=== PATIENT | female | born 1975 | race Caucasian/White ===

== ENCOUNTER 2016-07-03 11:13 | Emergency (ER) | payer MEDICAID ==
--- NOTE | 2016-07-03 11:27 | ER Document Report ---
ED Medical Screen (RME) - General Chief Complaint: Abdominal Pain Stated Complaint: ABDOMINAL PAIN/DIARRHEA Time Seen by Provider: 07/03/16 11:20 Mode of Arrival: Wheelchair Information source: Patient Notes: 41-year-old female presents with complaints of suprapubic cramping sensation associated with diarrhea. Patient notes she had one episode 3 weeks ago another episode one week ago. Patient denies any vomiting, feels something is protruding from her abdomen I have greeted and performed a rapid initial assessment of this patient. A comprehensive ED assessment and evaluation of the patient, analysis of test results and completion of the medical decision making process will be conducted by additional ED providers. PHYSICAL EXAMINATION: GENERAL: Well-appearing, well-nourished and in no acute distress. HEAD: Atraumatic, normocephalic. EYES: Pupils equal round extraocular movements intact, conjunctiva are normal. ENT: Nares patent NECK: Normal range of motion LUNGS: No respiratory distress Musculoskeletal: Normal range of motion NEUROLOGICAL: Normal speech, normal gait. PSYCH: Normal mood, normal affect. SKIN: Warm, Dry, normal turgor, no rashes or lesions noted. TRAVEL OUTSIDE OF THE [place] IN LAST 30 DAYS: No - Related Data Allergies/Adverse Reactions: carbamazepine [From Tegretol] Allergy (Verified 07/03/16 11:16) Past Medical History Pulmonary Medical History: Reports: Hx COPD Renal/ Medical History: Denies: Hx Peritoneal Dialysis Musculoskeltal Medical History: Reports Hx Fibromyalgia Psychiatric Medical History: Reports: Hx Depression, Hx Post Traumatic Stress Disorder Past Surgical History: Reports: Hx Oral Surgery, Hx Thyroid Surgery - Immunizations Hx Diphtheria, Pertussis, Tetanus Vaccination: Yes - 3-4 years ago (approx. 2007 ) Physical Exam - Vital signs Vitals: Temp Pulse Resp BP Pulse Ox 98.0 F 97 16 108/76 99 07/03/16 11:18 07/03/16 11:18 07/03/16 11:18 07/03/16 11:18 07/03/16 11:18 Course - Vital Signs Vital signs: Temp Pulse Resp BP Pulse Ox 98.0 F 97 16 108/76 99 07/03/16 11:18 07/03/16 11:18 07/03/16 11:18 07/03/16 11:18 07/03/16 11:18
--- NOTE | 2016-07-03 11:47 | ER Document Report ---
ED GI/ - General Chief Complaint: Abdominal Pain Stated Complaint: ABDOMINAL PAIN/DIARRHEA Time Seen by Provider: 07/03/16 11:20 Mode of Arrival: Wheelchair Notes: The patient is a 41-year-old female, , past medical history fibromyalgia and PTSD, presents with pain and swelling over her lower abdomen for the past 2 days. In addition she is having lower back pain. The pain is worse when she has loose stools today and when she moves. She denies nausea, vomiting, prior abdominal surgeries, vaginal discharge, dysuria, flank pain, fevers, headache, chest pain or shortness of breath. TRAVEL OUTSIDE OF THE [place] IN LAST 30 DAYS: No - Related Data Allergies/Adverse Reactions: carbamazepine [From Tegretol] Allergy (Verified 07/03/16 11:16) Past Medical History - General Information source: Patient - Social History Smoking Status: Current Every Day Smoker Chew tobacco use (# tins/day): No Frequency of alcohol use: Occasional Drug Abuse: None Family History: Reviewed & Not Pertinent Patient has suicidal ideation: No Patient has homicidal ideation: No Pulmonary Medical History: Reports: Hx COPD Renal/ Medical History: Denies: Hx Peritoneal Dialysis Musculoskeltal Medical History: Reports Hx Fibromyalgia Psychiatric Medical History: Reports: Hx Depression, Hx Post Traumatic Stress Disorder Past Surgical History: Reports: Hx Oral Surgery, Hx Thyroid Surgery - Immunizations Hx Diphtheria, Pertussis, Tetanus Vaccination: Yes - 3-4 years ago (approx. 2007 ) Hx Pneumococcal Vaccination: 02/21/09 Review of Systems - Review of Systems Notes: REVIEW OF SYSTEMS: CONSTITUTIONAL: -fevers, -chills EENT: -eye pain, -difficulty swallowing, -nasal congestion CARDIOVASCULAR:-chest pain, -syncope. RESPIRATORY: -cough, -SOB GASTROINTESTINAL: +abdominal pain, -nausea, -vomiting, +diarrhea GENITOURINARY: -dysuria, -hematuria MUSCULOSKELETAL: -back pain, -neck pain SKIN: -rash or skin lesions. HEMATOLOGIC: -easy bruising or bleeding. LYMPHATIC: -swollen, enlarged glands. NEUROLOGICAL: -altered mental status or loss of consciousness, -headache, - neurologic symptoms PSYCHIATRIC: -anxiety, -depression. ALL OTHER SYSTEMS REVIEWED AND NEGATIVE. Physical Exam - Vital signs Vitals: Temp Pulse Resp BP Pulse Ox 98.0 F 97 16 108/76 99 07/03/16 11:18 07/03/16 11:18 07/03/16 11:18 07/03/16 11:18 07/03/16 11:18 - Notes Notes: PHYSICAL EXAMINATION: GENERAL: Well-appearing, well-nourished and in no acute distress. HEAD: Atraumatic, normocephalic. EYES: Pupils equal round and reactive to light, extraocular movements intact, sclera anicteric, conjunctiva are normal. ENT: nares patent, oropharynx clear without exudates. Moist mucous membranes. NECK: Normal range of motion, supple without lymphadenopathy LUNGS: Breath sounds clear to auscultation bilaterally and equal. No wheezes rales or rhonchi. HEART: Regular rate and rhythm without murmurs ABDOMEN: Moderate abdominal tenderness over RLQ, LLQ and suprapubic regions, mass in lower abdomen EXTREMITIES: Normal range of motion, no pitting or edema. No cyanosis. NEUROLOGICAL: Cranial nerves grossly intact. Normal speech, normal gait. Normal sensory, motor, and reflex exams. PSYCH: Normal mood, normal affect. SKIN: Warm, Dry, normal turgor, no rashes or lesions noted. Course - Re-evaluation Re-evalutation: Patient with large pelvic mass on physical exam. CT shows 11 cm right ovarian cystic mass with possible compression of the ureter. Her kidney function is normal and she is urinating. Pain is under control after morphine and Toradol. Spoke to Dr. Benavides (Signal Inspector) at 15:45 and she recommends following up in her office on Tuesday (in 2 days) to schedule surgery for removal of the mass. Since she can urinate and her pain is under control, she does not require emergent surgery. Spoke to patient about this plan and she understands. Will send home with Percocet and was follow up at gynecology. Given strict return precautions and she understands. - Vital Signs Vital signs: Temp Pulse Resp BP Pulse Ox 98.0 F 97 16 108/76 99 07/03/16 11:18 07/03/16 11:18 07/03/16 11:18 07/03/16 11:18 07/03/16 11:18 - Laboratory Result Diagrams: 07/03/16 11:35 07/03/16 11:35 Laboratory results interpreted by me: 07/03/16 07/03/16 11:35 11:52 AST 12 L Urine Urobilinogen 4.0 H - Diagnostic Test Radiology reviewed: Image reviewed, Reports reviewed Radiology results interpreted by me: CT A/P: Large cystic pelvic mass as noted above presumably ovarian in etiology. 3 small cysts are identified in the left pelvis presumably related to the left ovary. There is some fullness of the pelvocaliceal systems of each kidney presumably related to extrinsic compression of the distal ureters by the large pelvic mass. Clinical correlation is recommended. Other findings as noted above. Discharge - Discharge Clinical Impression: Ovarian mass, right Condition: Stable Disposition: HOME, SELF-CARE Additional Instructions: You must follow-up with the subassemblies wirer on Tuesday. Take Motrin for pain and Percocet for severe pain. Do not drive when taking Percocet. Ovarian Cyst Your examination shows the presence of an ovarian cyst. This is a ball of fluid attached to the ovary. Ovarian cysts in women of child-bearing age are usually innocent. However, the cyst may cause pain when it grows or bursts. An innocent ovarian cyst will usually go away by itself. When the cyst becomes painful, you should rest. Pain medication may be required. Some women find a hot water bottle soothing. The pain usually resolves within one or two days. After menopause, an ovarian cyst may mean a tumor, and requires more aggressive evaluation -- usually surgery is recommended to remove or biopsy the cyst. A very large cyst requires evaluation at any age. Most cysts (even the innocent ones) require follow-up examination. Call the doctor or return at any time if the pain increases significantly, if you become faint, or if you experience vaginal bleeding. Prescriptions: Oxycodone HCl/Acetaminophen [Percocet 5-325 mg Tablet] 1 - 2 tab PO Q4H PRN #10 tablet PRN Reason: Referrals: NICHOLAS GONZALEZ MD [Primary Care Provider] - Follow up as needed MARGO BENAVIDES MD [ACTIVE STAFF] - Follow up as needed
[2016-07-03 11:50] LABS: ABSOLUTE BASOPHILS # (AUTO) 0.1 10^3/uL (0.0-0.2); ABSOLUTE LYMPHOCYTES (AUTO) 1.9 10^3/uL (0.5-4.7); ABSOLUTE MONOCYTES (AUTO) 0.8 10^3/uL (0.1-1.4); ABSOLUTE NEUT (AUTO) 7.4 10^3/uL (1.7-8.2); BASOPHILS % (AUTO) 1.2 % (0-2); EOSINOPHILS % (AUTO) 0.4 % (0-6); HEMATOCRIT 43.2 % (36.0-47.0); HEMOGLOBIN 14.6 g/dL (12.0-15.5); HGB HCT DIFFERENCE 0.6; LYMPHOCYTES % (AUTO) 18.2 % (13-45); MEAN CORPUSCULAR HEMOGLOBIN 31.3 pg (27.0-33.4); MEAN CORPUSCULAR HGB CONC 33.8 g/dL (32.0-36.0); MEAN CORPUSCULAR VOLUME 93 fl (80-97); MONOCYTES % (AUTO) 8.1 % (3-13); RED BLOOD COUNT 4.66 10^6/uL (3.72-5.28); RED CELL DISTRIBUTION WIDTH 12.9 % (11.5-14.0); SEGMENTED NEUTROPHILS % (AUTO) 72.1 % (42-78); WHITE BLOOD COUNT 10.2 10^3/uL (4.0-10.5)
[2016-07-03] MEDS ORDERED: MORPHINE SULFATE 10 MG/ML INJ IV ONE (11:58)
[2016-07-03] MEDS ORDERED: KETOROLAC TROMETHAMINE INJ/PF 30 MG/1 ML SDV IV ONE (11:58)
[2016-07-03 12:07] LABS: ALANINE AMINOTRANSFERASE 14 U/L (9-52); ALBUMIN 3.9 g/dL (3.5-5.0); ALKALINE PHOSPHATASE 81 U/L (38-126); ANION GAP 12 (5-19); ASPARTATE AMINO TRANSFERASE 12 U/L (14-36); BILIRUBIN,DIRECT 0.3 mg/dL (0.0-0.4); BILIRUBIN,TOTAL 0.5 mg/dL (0.2-1.3); BLOOD UREA NITROGEN 9 mg/dL (7-20); CALCIUM 9.6 mg/dL (8.4-10.2); CARBON DIOXIDE 25 mmol/L (22-30); CHLORIDE 102 mmol/L (98-107); CREATININE RESULT 0.69 mg/dL (0.52-1.25); GLUCOSE 76 mg/dL (75-110); LIPASE 79.8 U/L (23-300); POTASSIUM 4.5 mmol/L (3.6-5.0); SODIUM 139.2 mmol/L (137-145); TOTAL PROTEIN 6.9 g/dL (6.3-8.2)
[2016-07-03 12:27] LABS: APPEARANCE,URINE SLIGHTLY-CLOUDY; BILIRUBIN,URINE NEGATIVE (NEGATIVE); GLUCOSE, URINE NEGATIVE (NEGATIVE); KETONES,URINE NEGATIVE (NEGATIVE); LEUKOCYTE ESTERASE,URINE NEGATIVE (NEGATIVE); NITRITE,URINE NEGATIVE (NEGATIVE); PROTEIN,URINE NEGATIVE (NEGATIVE); URINE SPECIFIC GRAVITY 1.025
[2016-07-03 17:13] VITALS: BP 110/78
== END 2016-07-03 17:13 | disposition home or self-care (01) ==
LOC: ER 11:13
DX: R19.00 Intra-abdominal and pelvic swelling, mass and lump, unspecified site (principal); R10.9 Unspecified abdominal pain; R19.7 Diarrhea, unspecified; F17.200 Nicotine dependence, unspecified, uncomplicated
CPT/HCPCS: 99284; 96374; 96375; 36415; 83690; 85025; 81025; 80053; 81001; 74177; J1885; J2270

== ENCOUNTER 2016-07-07 16:13 | Inpatient (IN) | payer MEDICAID ==
[2016-07-06 13:02] LABS: HEMATOCRIT 39.9 % (36.0-47.0); HEMOGLOBIN 13.5 g/dL (12.0-15.5); HGB HCT DIFFERENCE 0.6; MEAN CORPUSCULAR HEMOGLOBIN 31.5 pg (27.0-33.4); MEAN CORPUSCULAR HGB CONC 33.8 g/dL (32.0-36.0); MEAN CORPUSCULAR VOLUME 93 fl (80-97); RED BLOOD COUNT 4.28 10^6/uL (3.72-5.28); WHITE BLOOD COUNT 9.6 10^3/uL (4.0-10.5)
[2016-07-06 13:10] LABS: APPEARANCE,URINE SLIGHTLY-CLOUDY; BILIRUBIN,URINE NEGATIVE (NEGATIVE); GLUCOSE, URINE NEGATIVE (NEGATIVE); KETONES,URINE TRACE mg/dL (NEGATIVE); LEUKOCYTE ESTERASE,URINE NEGATIVE (NEGATIVE); NITRITE,URINE NEGATIVE (NEGATIVE); PROTEIN,URINE NEGATIVE (NEGATIVE); URINE SPECIFIC GRAVITY 1.023
[2016-07-06 13:27] LABS: ALANINE AMINOTRANSFERASE 20 U/L (9-52); ALBUMIN 3.3 g/dL (3.5-5.0); ALKALINE PHOSPHATASE 74 U/L (38-126); ANION GAP 10 (5-19); ASPARTATE AMINO TRANSFERASE 12 U/L (14-36); BILIRUBIN,DIRECT 0.4 mg/dL (0.0-0.4); BILIRUBIN,TOTAL 0.6 mg/dL (0.2-1.3); BLOOD UREA NITROGEN 8 mg/dL (7-20); CALCIUM 9.1 mg/dL (8.4-10.2); CARBON DIOXIDE 26 mmol/L (22-30); CHLORIDE 100 mmol/L (98-107); CREATININE RESULT 0.63 mg/dL (0.52-1.25); GLUCOSE 85 mg/dL (75-110); POTASSIUM 4.4 mmol/L (3.6-5.0); SODIUM 135.8 mmol/L (137-145); TOTAL PROTEIN 6.6 g/dL (6.3-8.2)
[2016-07-06 13:33] LABS: URINE BARBITURATES SCREEN NEGATIVE; URINE METHADONE SCREEN NEGATIVE; URINE PHENCYCLIDINE SCREEN NEGATIVE
[2016-07-06 15:10] LABS: URINE OPIATES LOW UNCONFIRMED POSITIVE
[~2016-07-07 16:13] MED LIST: BUPIVACAINE HCL 0.25 % INJ/PF (2.5 MG/1 ML) 30 ML VIAL ONE; CEFAZOLIN 2 GM/D5W RTU 2 GM/50 ML RTUPB IV PRN; DEXAMETHASONE SOD PHOSPHATE INJ 4 MG/1 ML VIAL ONE; FENTANYL CITRATE INJ/PF 100 MCG/2 ML AMPUL ONE; GLYCOPYRROLATE INJ 0.4 MG/2 ML VIAL ONE; HYDROMORPHONE HCL INJ/PF 2 MG/ML AMPULE ONE; IBUPROFEN INJ 800 MG/8 ML VIAL IV ONE; LACTATED RINGERS 1000 ML IV PRN; LIDOCAINE 0.5% INJ-PF (5 MG/ML) 50 ML SDV SUBCUT PRN; METHYLENE BLUE/PF INJ 100 MG/10 ML SDV ONE; MIDAZOLAM 2 MG/2 ML INJ ONE; NEOSTIGMINE METHYLSULFATE 10 MG/10 ML VIAL ONE; ONDANSETRON HCL INJ/PF 4 MG/2 ML SDV ONE; OXYCODONE-ACETAMINOPHEN 5-325 MG TABLET ONE; PROPOFOL INJ 200 MG/20 ML VIAL IV ONE; ROCURONIUM BROMIDE INJ 50 MG/5 ML VIAL IV ONE; SUCCINYLCHOLINE CHLORIDE INJ 200 MG/10 ML VIAL ONE
[2016-07-07] MEDS ORDERED: GENTAMICIN SULFATE INJ 80 MG/2 ML VIAL ONE (17:09)
[2016-07-07] MEDS ORDERED: FENTANYL CITRATE INJ/PF 100 MCG/2 ML AMPUL ONE (17:13)
[2016-07-07] MEDS ORDERED: HYDROMORPHONE HCL INJ/PF 2 MG/ML AMPULE IV PRN ×2 (22:00)
[2016-07-07] MEDS ORDERED: OXYCODONE-ACETAMINOPHEN 5-325 MG TABLET PO PRN (22:00)
[2016-07-07] MEDS ORDERED: ONDANSETRON 4 MG TAB.RAPDIS PO PRN (22:00)
[2016-07-07] MEDS: CLINDAMYCIN 900 MG/D5W RTU 50 ML IV SCH (22:13)
[2016-07-07] MEDS: OXYCODONE-ACETAMINOPHEN 5-325 MG TABLET PO PRN (22:16)
[2016-07-08] MEDS: GABAPENTIN 300 MG CAPSULE PO SCH ×4 (00:01→21:51)
[2016-07-08] MEDS: IBUPROFEN 800 MG TABLET PO SCH ×4 (00:01→21:38)
[2016-07-08] MEDS ORDERED: GENTAMICIN SULFATE 80 MG in DEXTROSE 5%-WATER 100 ML IV ONE (01:00)
[2016-07-08] MEDS: OXYCODONE-ACETAMINOPHEN 5-325 MG TABLET PO PRN ×5 (04:20→23:22)
[2016-07-08] MEDS: CLINDAMYCIN 900 MG/D5W RTU 50 ML IV SCH (06:36)
[2016-07-08 07:15] LABS: HEMATOCRIT 31.9 % (36.0-47.0); HGB HCT DIFFERENCE 0.5; MEAN CORPUSCULAR HEMOGLOBIN 30.9 pg (27.0-33.4); MEAN CORPUSCULAR HGB CONC 33.9 g/dL (32.0-36.0); MEAN CORPUSCULAR VOLUME 91 fl (80-97); WHITE BLOOD COUNT 18.3 10^3/uL (4.0-10.5)
--- NOTE | 2016-07-08 07:21 | OPERATIVE REPORT E ---
Operative Report NAME: LULU MERRILL : 1975 AGE: 41Y DATE OF SURGERY: 07/07/2016 ROOM: 217 INTRAOPERATIVE CONSULT PREOPERATIVE DIAGNOSIS: ADHESIONS OF THE RECTOSIGMOID JUNCTION TO THE UTERUS. POSTPROCEDURE DIAGNOSIS: ADHESIONS OF THE RECTOSIGMOID JUNCTION TO THE UTERUS. OPERATION: 1. Lysis of adhesions of the rectosigmoid junction to the uterus. 2. Rigid proctoscopy with insufflation of air. SURGEON: SUKHI EGAN M.D. HISTORY: Patient is a 41-year old female who is currently being operated on by gynecology. They were doing a TH-BSO when dense adhesions were encountered in the rectosigmoid region to the posterior portion of the uterus. FINDINGS OF THE SURGERY: Patient had dense adhesions of the rectosigmoid junction to the posterior uterus and cervix. These were taken down. Once the hysterectomy had been completed, rigid proctoscopy was then performed with air insufflation. There is no leak of air from the rectum or rectosigmoid region. PROCEDURE: Patient's abdomen was already open and the uterus was partially removed. There were dense adhesions in the rectosigmoid region to the anterior portion of the uterus. These dense adhesions were then taken down using electrocautery, carefully staying as far away from the bowel wall as possible. The peritoneal reflection was then incised anteriorly and laterally. Denonvillier's fascia was then incised, further taking the rectum down off of the cervix and for a short portion of the vagina. Once this had been completed, I had stopped and then the rest of the hysterectomy was then performed. The pelvis was then thoroughly irrigated, inspecting the rectum and rectosigmoid junction. The bowel appeared to be intact without any damage. There is a small flap of peritoneum taken down off of the uterus that was attached to the rectosigmoid junction. This is brought down over the top of where the rectosigmoid junction and rectum had been taken down. This flap was secured to that area using interrupted #3-0 Vicryl suture. A bowel clamp was then placed across the sigmoid colon. The rigid proctoscope was then inserted through the anus and into the rectum to approximately 15 cm. Air was then insufflated and no leak was noted from the proximal rectum or rectosigmoid junction area. The air was let out of the rectum and the bowel clamp removed. At this point, the surgery was turned over to the varnish supervisor. ESTIMATED BLOOD LOSS: Less than 5 mL. COMPLICATIONS: None. DRAINS AND PACKS FOR MY PART OF THE PROCEDURE: None. DICTATING PHYSICIAN: SUKHI EGAN M.D. [id number] PHY#: [id number] ID: [id number] JOB#: [id number] ACCT: [id number] cc:SUKHI EGAN M.D. > MTDD
[2016-07-08 07:49] LABS: HEMOGLOBIN 10.8 g/dL (12.0-15.5)
--- NOTE | 2016-07-08 08:54 | OPERATIVE REPORT E ---
Operative Report NAME: LULU MERRILL : 1975 AGE: 41Y DATE OF SURGERY: 07/07/2016 ROOM: 217 PREOPERATIVE DIAGNOSIS: Pelvic pain with 12 cm right ovarian mass. POSTOPERATIVE DIAGNOSES: 1. Large right ovarian cyst, probable dermoid. 2. Significant pelvic adhesion disease. 3. 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 OPERATION: Laparoscopy which was converted to exploratory laparotomy with a total abdominal hysterectomy, bilateral salpingo-oophorectomy, lysis of adhesions, cystoscopy. There was also a proctoscopy performed by Dr. Serrato. SURGEON: NEDA ORTIZ M.D. FRONT END ASSISTANT: Dr. Machado. INTRAOPERATIVE CONSULT: Dr. Serrato of General Surgery. ESTIMATED BLOOD LOSS: 350 mL. TISSUE REMOVED OR ALTERED: Specimen to Pathology: Uterus, bilateral tubes and ovaries. FINDINGS: On laparoscopic evaluation, there was a large right ovarian mass that had a fairly smooth surface and had a large amount of sebaceous material inside of it. This was adhered inferiorly to the pelvic sidewall and posterior aspect of the uterus. After adequately visualizing the left tube and ovary, it was also realized that there was significant adhesion there. There were adhesions of the rectum to the posterior aspect of the uterus. On cystoscopic evaluation, there was spill of urine from both ureters. However, in the trigone in the bladder there was a white plaque-like area that was likely squamous metaplasia. This will be further evaluated by Dr. Copeland of Urology, and he will get the pictures tomorrow as he was not station operator today. DESCRIPTION OF PROCEDURE: After discussing risks, benefits, and alternatives of the procedure and obtaining informed consent, the patient was taken to the operating room where general anesthesia was achieved. She was positioned in the dorsal lithotomy position and prepped and draped in the usual standard fashion. Bladder was drained with a Mariano catheter. A Seismo-Shelf uterine manipulator was placed. Attention was turned to the patient's abdomen. Each port site was premedicated and then incision was made in the superior aspect of the umbilicus. A 12 mm skin incision was made. The fascia was grasped and elevated with Karrie and then incised. The Origin 12 mm trocar was placed under direct visualization and the peritoneum insufflated. The laparoscope was placed and the right and left lower quadrant trocars were placed under direct visualization. The pelvis was initially surveyed. An attempt was made to mobilize the large ovarian cyst out of the pelvis; however, spill occurred during this process, and the spill of the fluid was suctioned. Utero-ovarian pedicles were coagulated and cut on the patient's right. The right infundibulo- pelvic vessels were initially also started to be coagulated and cut with the LigaSure device. However, further mobilization was difficult, and it was at that point realized that the cyst was adhered to the pelvic sidewall and could not be removed that way. Also decompression of the cyst contents at that point allowed the scope to be passed more thoroughly into the posterior cul-de-sac, and the dense adhesions posteriorly were noted. At this point, it was felt to be most prudent to proceed to open laparotomy. The laparoscopic equipment was removed. The umbilical port site was closed with #1-Vicryl at the fascial level. Skin incisions were closed with 3-0 Monocryl followed by Dermabond. Next, a Pfannenstiel skin incision was made and the abdomen was entered in layers. The bowel was packed away and the Ramseur retractor placed. Each round ligament was suture ligated with #0-Monocryl and tagged. The round ligament medial to this was coagulated with the LigaSure device, and a bladder flap was created. This was done using cautery and blunt dissection. A defect was created in the mesosalpinx on the patient's left and the utero-ovarian vessels undermined. The infundibulo-pelvic vessels were therefore skeletonized, coagulated and cut, and the left tube and ovary removed. Dr. Machado arrived during this process. Attempt was made at removing more of the right ovarian cyst. This was done using cautery and sharp dissection. This was eventually removed in its entirety, and that aided in visualization. Dr. Serrato was then called for, and he removed rectal adhesions from the posterior aspect of the patient's uterus which were mainly on the patient's uterosacral ligament and just superior to that. The uterine arteries were then skeletonized and coagulated and cut with the LigaSure. Fariba clamps were placed just inferior to the cervix and the specimen excised. The cuff was closed with #0-Monocryl in interrupted [id number]. The pelvis was irrigated. Dr. Serrato then closed the peritoneum overriding the rectum back to the place where it had been deserosalized on the left. He did this with 3-0 Vicryl. He then went below with a rigid proctoscope and insufflated air after placing a clamp across the sigmoid. This was done after placing irrigation fluid around the bowel. There were no air bubbles noted, and it was all hemostatic. He then left the room after we removed the bowel clamp. The pelvis was surveyed and hemostasis assured. The laparotomy sponges were removed. The rectus muscle and peritoneum were closed in an interrupted fashion with 2-0 Vicryl. The subfascial spaces were noted to be hemostatic. Fascia was closed with #1-Vicryl. Subcutaneous spaces were irrigated and closed with 3-0 plain gut. Skin was closed in a subcuticular fashion with 4-0 Monocryl. An OpSite dressing was applied. Methylin blue had been given IV and cystoscopy then performed. There was spill of urine from both ureteral orifices. The white plaque-like area in the trigone in the bladder was noted, but the urologist was not immediately therefore. The case was, however, discussed with him. Dr. Copeland agrees to see the patient and look at the pictures tomorrow. The Amriano catheter was replaced. The patient was extubated and taken to recovery in stable condition. All sponge, needle, lap, and instrument counts were correct x2. DICTATING PHYSICIAN: NEDA ORTIZ M.D. [id number] PHY#: [id number] ID: [id number] JOB#: [id number] ACCT: [id number] cc:NEDA ORTIZ M.D. > MTDD
[2016-07-08] MEDS: NICOTINE 21 MG/24 HR PATCH.TD24 TD SCH (10:13)
--- NOTE | 2016-07-08 13:42 | PDOC CONSULTATION ---
Consultation Consult Date: 07/08/16 Attending physician:: NEDA ORTIZ Consult reason:: abnormal cysto findings History of Present Illness Admission Date/PCP: 07/07/16 21:04 NICHOLAS GONZALEZ MD Patient complains of: abdominal discomfort s/p surgery History of Present Illness: LULU MERRILL is a 41 year old female with a pmh of PTSD, depression, fibromyalgia and ovarian cyst s/p RADHIKA/BSO and cysto 07/07/16. On cysto, per Dr. Matthews, an abnormal white plaque-like lesion was noted at the trigone. The patient reports a h/o rare UTIs. She denies any bothersome LUTS such as freq/urg /dysuria. Denies any h/o hematuria as well. She is a current smoker. Past Medical History Past Medical History: as above Cardiac Medical History: Reports: Coronary Artery Disease - high chol Denies: Myocardial Infarction, Hypertension Pulmonary Medical History: Denies: Asthma, Bronchitis, Chronic Obstructive Pulmonary Disease (COPD), Pneumonia Neurological Medical History: Denies: Seizures Musculoskeltal Medical History: Reports: Fibromyalgia Denies: Arthritis Psychiatric Medical History: Reports: Depression, Post Traumatic Stress Disorder Hematology: Denies: Anemia, Sickle Cell Disease Past Surgical History Past Surgical History: as above, left breast cyst excision, thyroglossal duct excision Past Surgical History: Denies: Amputation Social History Smoking Status: Current Every Day Smoker Past Social History Note: Pt is a current smoker, denies h/o etoh/drug abuse Family History Family History: Other - noncontributory Parental Family History Reviewed: Yes Children Family History Reviewed: Yes Sibling(s) Family History Reviewed.: Yes Medication/Allergy Home Medications: Oxycodone HCl/Acetaminophen [Percocet 5-325 mg Tablet] 1 - 2 tab PO Q4H PRN #10 tablet 07/03/16 Hydromorphone HCl [Dilaudid 2 mg Tablet] 2 mg PO PRN PRN 07/06/16 Allergies/Adverse Reactions: carbamazepine [From Tegretol] Allergy (Verified 07/06/16 10:44) Unknown reaction Review of Systems Review of Systems: denies f/c, n/v, cp/sob, complete 12 point ROS performed and otherwise unremarkable except as noted Physical Exam Vital Signs: Temp Pulse Resp BP Pulse Ox 97.8 F 68 18 101/62 99 05/18/17 11:00 07/08/16 11:00 07/08/16 11:00 07/08/16 11:00 07/08/16 11:00 Intake & Output 07/07/16 07/08/16 07/09/16 06:59 06:59 06:59 Intake Total 400 Output Total 600 150 Balance -600 250 Weight 46.72 kg General appearance: PRESENT: no acute distress, cooperative, well-developed, well-nourished Head exam: PRESENT: atraumatic, normocephalic Eye exam: PRESENT: EOMI Ear exam: PRESENT: normal external ear exam Mouth exam: PRESENT: moist, neck supple Respiratory exam: PRESENT: symmetrical, unlabored Cardiovascular exam: PRESENT: RRR, other - no JVD GI/Abdominal exam: PRESENT: soft, tenderness - appropriate. ABSENT: distended, organolmegaly, rebound Gentrourinary exam: PRESENT: indwelling catheter - draining clear green urine Extremities exam: PRESENT: full ROM. ABSENT: calf tenderness, clubbing Musculoskeletal exam: PRESENT: other - no CVAT Neurological exam: PRESENT: alert, awake, CN II-XII grossly intact Psychiatric exam: PRESENT: normal mood, other - normal mood and affect Skin exam: PRESENT: dry, warm Results Laboratory Results: 07/08/16 06:40 07/06/16 11:38 07/08/16 06:40 WBC 18.3 H RBC 3.50 L Hgb 10.8 L D Hct 31.9 L MCV 91 MCH 30.9 MCHC 33.9 RDW 13.0 Plt Count 275 Assessment & Plan - Diagnosis (1) Lesion of bladder Is this a current diagnosis for this admission?: Yes - Plan Summary Plan Summary: s/p RADHIKA/BSO/Cysto with abnormal findings on cysto. I have reviewed the photos taken during cysto which are on the chart. The lesion appears to be most c/w squamous metaplasia of the trigone, although I am not able to fully assess from the photographs alone. Given her h/o smoking, I recommend outpatient cysto in 2- 3 weeks.
[2016-07-08] MEDS ORDERED: RINGERS SOLUTION,LACTATED 1,000 ML IV ONE (14:00)
[2016-07-08 14:46] LABS: ABSOLUTE BASOPHILS # (AUTO) 0.1 10^3/uL (0.0-0.2); ABSOLUTE EOSINOPHILS # (AUTO) 0.1 10^3/uL (0.0-0.6); ABSOLUTE LYMPHOCYTES (AUTO) 1.4 10^3/uL (0.5-4.7); ABSOLUTE MONOCYTES (AUTO) 0.3 10^3/uL (0.1-1.4); ABSOLUTE NEUT (AUTO) 11.5 10^3/uL (1.7-8.2); BASOPHILS % (AUTO) 0.6 % (0-2); EOSINOPHILS % (AUTO) 0.4 % (0-6); HEMATOCRIT 31.8 % (36.0-47.0); HEMOGLOBIN 10.4 g/dL (12.0-15.5); HGB HCT DIFFERENCE -0.6; LYMPHOCYTES % (AUTO) 10.6 % (13-45); MEAN CORPUSCULAR HEMOGLOBIN 30.4 pg (27.0-33.4); MEAN CORPUSCULAR HGB CONC 32.7 g/dL (32.0-36.0); MEAN CORPUSCULAR VOLUME 93 fl (80-97); MONOCYTES % (AUTO) 2.6 % (3-13); RED BLOOD COUNT 3.42 10^6/uL (3.72-5.28); SEGMENTED NEUTROPHILS % (AUTO) 85.8 % (42-78); WHITE BLOOD COUNT 13.4 10^3/uL (4.0-10.5)
[2016-07-08 15:12] LABS: ALANINE AMINOTRANSFERASE 20 U/L (9-52); ALBUMIN 2.4 g/dL (3.5-5.0); ALKALINE PHOSPHATASE 58 U/L (38-126); ANION GAP 7 (5-19); ASPARTATE AMINO TRANSFERASE 10 U/L (14-36); BILIRUBIN,DIRECT 0.4 mg/dL (0.0-0.4); BILIRUBIN,TOTAL 0.6 mg/dL (0.2-1.3); BLOOD UREA NITROGEN 9 mg/dL (7-20); CALCIUM 8.5 mg/dL (8.4-10.2); CARBON DIOXIDE 27 mmol/L (22-30); CHLORIDE 101 mmol/L (98-107); CREATININE RESULT 0.78 mg/dL (0.52-1.25); GLUCOSE 105 mg/dL (75-110); POTASSIUM 3.7 mmol/L (3.6-5.0); SODIUM 134.7 mmol/L (137-145)
[2016-07-08] MEDS: METRONIDAZOLE RTU 500 MG/NS 100 ML IV SCH (18:07)
[2016-07-08] MEDS: RINGERS SOLUTION,LACTATED 1,000 ML IV PRN (18:22)
--- NOTE | 2016-07-08 20:17 | PDOC PROGRESS REPORT ---
Subjective Progress Note for:: 07/08/16 Subjective:: pt reports she is doing well, tolerating po intake, she desires to have rod removed. Physical Exam - Physical Exam Vital Signs: Temp Pulse Resp BP Pulse Ox 97.8 F 68 18 101/62 99 07/08/16 11:00 07/08/16 11:00 07/08/16 11:00 07/08/16 11:00 07/08/16 11:00 Intake & Output 07/07/16 07/08/16 07/09/16 06:59 06:59 06:59 Intake Total 400 Output Total 600 300 Balance -600 100 Weight 46.72 kg General appearance: PRESENT: no acute distress, well-developed, well-nourished Head exam: PRESENT: atraumatic, normocephalic Teeth exam: PRESENT: dental caries Neck exam: PRESENT: full ROM. ABSENT: carotid bruit, JVD, lymphadenopathy, thyromegaly Respiratory exam: PRESENT: clear to auscultation vu, symmetrical, unlabored Cardiovascular exam: PRESENT: RRR. ABSENT: diastolic murmur, rubs, systolic murmur Pulses: PRESENT: normal dorsalis pedis pul, +2 pedal pulses bilateral GI/Abdominal exam: PRESENT: normal bowel sounds, soft, tenderness - approp postop ttp. ABSENT: distended, guarding, mass, organolmegaly, rebound Rectal exam: PRESENT: deferred Extremities exam: PRESENT: full ROM. ABSENT: calf tenderness, clubbing, pedal edema Neurological exam: PRESENT: alert, awake, oriented to person, oriented to place , oriented to time, oriented to situation, CN II-XII grossly intact. ABSENT: motor sensory deficit Psychiatric exam: PRESENT: appropriate affect, normal mood. ABSENT: homicidal ideation, suicidal ideation Skin exam: PRESENT: dry, intact, warm. ABSENT: cyanosis, rash Result Laboratory Results: 07/08/16 14:35 07/08/16 07/08/16 06:40 14:35 WBC 18.3 H 13.4 H RBC 3.50 L 3.42 L Hgb 10.8 L D 10.4 L Hct 31.9 L 31.8 L MCV 91 93 MCH 30.9 30.4 MCHC 33.9 32.7 RDW 13.0 13.0 Plt Count 275 259 Seg Neutrophils % 85.8 H Lymphocytes % 10.6 L Monocytes % 2.6 L Eosinophils % 0.4 Basophils % 0.6 Absolute Neutrophils 11.5 H Absolute Lymphocytes 1.4 Absolute Monocytes 0.3 Absolute Eosinophils 0.1 Absolute Basophils 0.1 Assessment & Plan - Diagnosis (1) Trichomonal vaginitis Is this a current diagnosis for this admission?: YesPlan: Pap smear done in the office on 07/05 noted normal pap smear and neg GC/CT. However, trichomonas positive. Flagyl 500 mg IV BID ordered - will need meds for discharge (2) Ovarian mass, right Is this a current diagnosis for this admission?: YesPlan: S/p Operative L/S converted to RADHIKA/BSO and Cystoscopy with Rigid Proctoscope and extensive KOSTAS. Doing well postop. Urine output improved with bolus. She is sitting up eating in the bed and doing well. Anticipate if she tolerates her advance of care that she may be able to discharge in the am. Urology saw pt and recommends outpt f/u with them and she is aware. - Time Time Spent with patient: 15-24 minutes Critical Time spent with patient: Less than 15 minutes Smoking Cessation Education: 3 to 10 minutes Medications reviewed and adjusted accordingly: Yes Anticipated discharge: Home Within: within 24 hours - Inpatient Certification Based on my medical assessment, after consideration of the patient's comorbidities, presenting symptoms, or acuity I expect that the services needed warrant INPATIENT care.: Yes I certify that my determination is in accordance with my understanding of Medicare's requirements for reasonable and necessary INPATIENT services [42 CFR 412.3e].: Yes Medical Necessity: Need For IV Fluids, Need for Pain Control, Need for IV Antibiotics Post Hospital Care: D/C Osteopathic Physician Documentation - Plan Summary Plan Summary: likely discharge to home in am.
[2016-07-09] MEDS: RINGERS SOLUTION,LACTATED 1,000 ML IV PRN ×2 (03:35→13:29)
[2016-07-09] MEDS: IBUPROFEN 800 MG TABLET PO SCH (06:44)
[2016-07-09] MEDS: GABAPENTIN 300 MG CAPSULE PO SCH (06:44)
[2016-07-09 08:09] LABS: ABSOLUTE BASOPHILS # (AUTO) 0.1 10^3/uL (0.0-0.2); ABSOLUTE EOSINOPHILS # (AUTO) 0.1 10^3/uL (0.0-0.6); ABSOLUTE LYMPHOCYTES (AUTO) 1.3 10^3/uL (0.5-4.7); ABSOLUTE MONOCYTES (AUTO) 0.4 10^3/uL (0.1-1.4); ABSOLUTE NEUT (AUTO) 9.1 10^3/uL (1.7-8.2); BASOPHILS % (AUTO) 1.3 % (0-2); EOSINOPHILS % (AUTO) 0.8 % (0-6); HEMATOCRIT 32.3 % (36.0-47.0); HEMOGLOBIN 10.6 g/dL (12.0-15.5); HGB HCT DIFFERENCE -0.5; LYMPHOCYTES % (AUTO) 11.6 % (13-45); MEAN CORPUSCULAR HEMOGLOBIN 30.8 pg (27.0-33.4); MEAN CORPUSCULAR VOLUME 94 fl (80-97); MONOCYTES % (AUTO) 3.9 % (3-13); RED BLOOD COUNT 3.45 10^6/uL (3.72-5.28); RED CELL DISTRIBUTION WIDTH 13.4 % (11.5-14.0); SEGMENTED NEUTROPHILS % (AUTO) 82.4 % (42-78)
--- NOTE | 2016-07-09 08:12 | PDOC PROGRESS REPORT ---
Subjective Progress Note for:: 07/09/16 Subjective:: Pt states she had some nausea after motrin and neurontin last night. This am vomited after the same with breakfast. Adequate pain control. Flatusx1 yesterday. Some GERD. Ambulating. Physical Exam - Physical Exam Vital Signs: Temp Pulse Resp BP Pulse Ox 98.5 F 80 16 97/49 L 97 07/09/16 03:35 07/09/16 03:35 07/09/16 03:35 07/09/16 03:35 07/09/16 03:35 Intake & Output 07/08/16 07/09/16 07/10/16 06:59 06:59 06:59 Intake Total 2300 Output Total 600 1550 Balance -600 750 Additional comments: abdomen slightly distended+BS, normal postop tenderness, dressing clean and dry extrem nontender, no edema Result Laboratory Results: 07/08/16 07/08/16 14:35 14:35 WBC 13.4 H RBC 3.42 L Hgb 10.4 L Hct 31.8 L MCV 93 MCH 30.4 MCHC 32.7 RDW 13.0 Plt Count 259 Seg Neutrophils % 85.8 H Lymphocytes % 10.6 L Monocytes % 2.6 L Eosinophils % 0.4 Basophils % 0.6 Absolute Neutrophils 11.5 H Absolute Lymphocytes 1.4 Absolute Monocytes 0.3 Absolute Eosinophils 0.1 Absolute Basophils 0.1 Sodium 134.7 L Potassium 3.7 Chloride 101 Carbon Dioxide 27 Anion Gap 7 BUN 9 Creatinine 0.78 Est GFR ( Amer) > 60 Est GFR (Non-Af Amer) > 60 Glucose 105 Calcium 8.5 Total Bilirubin 0.6 AST 10 L ALT 20 Alkaline Phosphatase 58 Total Protein 5.0 L Albumin 2.4 L Assessment & Plan - Plan Summary Plan Summary: pt advised to go back to [facility] now. Will d/c motrin and neuroontin ...pt states neurontin sometimes makes her nausesated at home as well. Await am labs. Discussed trichomonas on pap...partner to be treated as well. Watch for ileus.
[2016-07-09 08:20] LABS: ALANINE AMINOTRANSFERASE 22 U/L (9-52); ALBUMIN 2.5 g/dL (3.5-5.0); ALKALINE PHOSPHATASE 71 U/L (38-126); ANION GAP 9 (5-19); ASPARTATE AMINO TRANSFERASE 12 U/L (14-36); BILIRUBIN,DIRECT 0.3 mg/dL (0.0-0.4); BILIRUBIN,TOTAL 0.3 mg/dL (0.2-1.3); BLOOD UREA NITROGEN 9 mg/dL (7-20); CALCIUM 8.8 mg/dL (8.4-10.2); CARBON DIOXIDE 29 mmol/L (22-30); CHLORIDE 101 mmol/L (98-107); CREATININE RESULT 0.72 mg/dL (0.52-1.25); GLUCOSE 83 mg/dL (75-110); POTASSIUM 4.1 mmol/L (3.6-5.0); SODIUM 138.7 mmol/L (137-145); TOTAL PROTEIN 4.9 g/dL (6.3-8.2)
[2016-07-09] MEDS ORDERED: HYDROMORPHONE HCL INJ/PF 2 MG/ML AMPULE IV ONE (09:00)
[2016-07-09] MEDS: NICOTINE 21 MG/24 HR PATCH.TD24 TD SCH (09:29)
[2016-07-09] MEDS: METRONIDAZOLE RTU 500 MG/NS 100 ML IV SCH ×2 (09:29→18:05)
[2016-07-09] MEDS: FAMOTIDINE INJ/PF 20 MG/2 ML SDV IV SCH ×2 (09:30→22:27)
[2016-07-09] MEDS: ONDANSETRON HCL INJ/PF 4 MG/2 ML SDV IV PRN ×2 (09:30→18:06)
[2016-07-09] MEDS ORDERED: BISACODYL 10 MG SUPP.RECT PR ONE (17:30)
[2016-07-09] MEDS: OXYCODONE-ACETAMINOPHEN 5-325 MG TABLET PO PRN (20:21)
[2016-07-10] MEDS: OXYCODONE-ACETAMINOPHEN 5-325 MG TABLET PO PRN ×2 (02:30→06:10)
[2016-07-10] MEDS: RINGERS SOLUTION,LACTATED 1,000 ML IV PRN ×2 (02:33→06:12)
[2016-07-10 06:31] LABS: ABSOLUTE BASOPHILS # (AUTO) 0.1 10^3/uL (0.0-0.2); ABSOLUTE EOSINOPHILS # (AUTO) 0.1 10^3/uL (0.0-0.6); ABSOLUTE LYMPHOCYTES (AUTO) 0.7 10^3/uL (0.5-4.7); ABSOLUTE MONOCYTES (AUTO) 0.5 10^3/uL (0.1-1.4); ABSOLUTE NEUT (AUTO) 9.1 10^3/uL (1.7-8.2); BASOPHILS % (AUTO) 0.7 % (0-2); EOSINOPHILS % (AUTO) 1.1 % (0-6); HEMATOCRIT 30.2 % (36.0-47.0); HEMOGLOBIN 10.2 g/dL (12.0-15.5); HGB HCT DIFFERENCE 0.4; LYMPHOCYTES % (AUTO) 6.9 % (13-45); MEAN CORPUSCULAR HEMOGLOBIN 30.6 pg (27.0-33.4); MEAN CORPUSCULAR HGB CONC 33.7 g/dL (32.0-36.0); MEAN CORPUSCULAR VOLUME 91 fl (80-97); MONOCYTES % (AUTO) 4.5 % (3-13); RED BLOOD COUNT 3.33 10^6/uL (3.72-5.28); RED CELL DISTRIBUTION WIDTH 13.2 % (11.5-14.0); SEGMENTED NEUTROPHILS % (AUTO) 86.8 % (42-78); WHITE BLOOD COUNT 10.5 10^3/uL (4.0-10.5)
[2016-07-10 06:38] LABS: ALANINE AMINOTRANSFERASE 20 U/L (9-52); ALBUMIN 2.1 g/dL (3.5-5.0); ALKALINE PHOSPHATASE 61 U/L (38-126); ANION GAP 6 (5-19); ASPARTATE AMINO TRANSFERASE 11 U/L (14-36); BILIRUBIN,DIRECT 0.4 mg/dL (0.0-0.4); BILIRUBIN,TOTAL 0.4 mg/dL (0.2-1.3); BLOOD UREA NITROGEN 7 mg/dL (7-20); CALCIUM 8.3 mg/dL (8.4-10.2); CARBON DIOXIDE 27 mmol/L (22-30); CHLORIDE 102 mmol/L (98-107); CREATININE RESULT 0.61 mg/dL (0.52-1.25); GLUCOSE 77 mg/dL (75-110); MAGNESIUM 1.6 mg/dL (1.6-2.3); POTASSIUM 3.7 mmol/L (3.6-5.0); SODIUM 134.7 mmol/L (137-145); TOTAL PROTEIN 4.5 g/dL (6.3-8.2)
[2016-07-10] MEDS: NICOTINE 21 MG/24 HR PATCH.TD24 TD SCH (09:11)
[2016-07-10] MEDS: METRONIDAZOLE RTU 500 MG/NS 100 ML IV SCH (09:11)
[2016-07-10] MEDS: FAMOTIDINE INJ/PF 20 MG/2 ML SDV IV SCH (09:11)
[2016-07-10 11:28] VITALS: BP 119/54
--- NOTE | 2016-07-10 13:38 | DISCHARGE SUMMARY E ---
Discharge Summary NAME: LUCÍA MERRILL : 1975 AGE: 41Y ADMITTED: 07/06/2016 DISCHARGED: 07/10/2016 INDICATION FOR ADMISSION: Pelvic pain with large right ovarian cyst. HOSPITAL COURSE: Lucía is a 41-year-old female who was admitted with worsening pelvic pain. She had been found to have a 12.2 cm right ovarian cystic structure. Her tumor markers were negative prior to surgery. She underwent initial attempt at laparoscopic removal of the cystic structure, however, there were significant pelvic adhesions and she had requested hysterectomy should the need for open incision arise. She was, therefore, converted to an open total abdominal hysterectomy with bilateral salpingo-oophorectomy. She also had lysis of adhesions and intraoperative consult with General Surgery for adhesions of her rectum to posterior aspect of the uterus. She underwent cystoscopy at the time of surgery due to distorted anatomy and there was spill from both ureters. However, an area of what is most likely squamous metaplasia was noted in the trigone area of the bladder. There was no urologist manager [employer] that day, therefore, pictures were taken and of Urology saw the patient the next day. He agrees it is likely squamous metaplasia, but will do a cystoscopy in the office in a few weeks. Her postop course was complicated by nausea and vomiting on postop day 2. This was after eating a heavy breakfast and taking Motrin and Neurontin. Her Motrin and Neurontin were, therefore, held and she was given a Dulcolax suppository. She then had passage of a large amount of flatus and stool. By the time of discharge, she was ambulating and tolerating p.o. Also during the course of her stay, her Pap smear result returned which showed Trichomonas present. She was, therefore, placed on IV Flagyl during her stay and will be discharged on that. The Trichomonas was discussed with her and her partner will need treatment as well. She did remain afebrile throughout her stay. She did develop hot flashes on the day of discharge and will be placed on estrogen replacement therapy for that. Her hematocrit prior to surgery was 39.9 and at discharge it is 30.0. White count at discharge is 10.5. Her creatinine was stable and electrolytes ileana. She was noted to be rather hypoalbuminemic and nutrition was discussed with her. We also discussed smoking cessation and the patient was maintained on a nicotine patch during the course of her hospital stay. Pathology report was obtained just prior to discharge and it showed the right ovarian cyst was a tubo-ovarian complex with inflamed granulation tissue and fibrinopurulent exudate. The fallopian tube showed acute salpingitis and adhesions. The cervix had MELODIE 1. The left ovary had a benign cyst and left fallopian tube had acute salpingitis and benign paratubal cyst. The patient had received gentamicin and clindamycin immediately postop due to the pelvic adhesions. DISCHARGE DIAGNOSES: 1. Chronic pelvic pain. 2. Large right ovarian cyst suspicious for dermoid. 3. Pelvic adhesive disease. 4. Salpingitis. DISCHARGE MEDICATIONS: 1. Estradiol 1 mg 1 p.o. daily #30, refills x1. 2. Percocet 5/325 one to 2 p.o. q.i.d. p.r.n. #40, no refills. 3. Flagyl 500 mg 1 p.o. b.i.d. #14, no refills. 4. Doxycycline 100 mg 1 p.o. b.i.d. x2 weeks. 5. The patient will also be given an antiemetic in the event that she develops nausea and vomiting with the oral antibiotics. She is to followup Tuesday. Pelvic rest is advised. She is to followup immediately for fevers. DICTATING PHYSICIAN: NEDA ORTIZ M.D. [id number] PHY#: [id number] ID: [id number] JOB#: [id number] ACCT: [id number] cc:NEDA ORTIZ M.D. > MTDD
== END 2016-07-10 12:26 | disposition home or self-care (01) | DRG 742 ==
LOC: OROUT 16:13 → 2S 21:02 → OROUT 23:36
PROVIDERS: ADMIT Specialist; ATTEND Specialist
PROC: 0UTC0ZZ Resection of Cervix, Open Approach (ICD-10-PCS; 2016-07-07)
PROC: 0UT20ZZ Resection of Bilateral Ovaries, Open Approach (ICD-10-PCS; 2016-07-07)
PROC: 0UT70ZZ Resection of Bilateral Fallopian Tubes, Open Approach (ICD-10-PCS; 2016-07-07)
PROC: 0DNP0ZZ Release Rectum, Open Approach (ICD-10-PCS; 2016-07-07)
PROC: 0UT90ZZ Resection of Uterus, Open Approach (ICD-10-PCS; principal; 2016-07-07 10:15)
DX: N83.292 Other ovarian cyst, left side (principal); N70.01 Acute salpingitis; N83.291 Other ovarian cyst, right side; F43.10 Post-traumatic stress disorder, unspecified; F32.9 Major depressive disorder, single episode, unspecified; M79.7 Fibromyalgia; I25.10 Atherosclerotic heart disease of native coronary artery without angina pectoris; F17.210 Nicotine dependence, cigarettes, uncomplicated; J44.9 Chronic obstructive pulmonary disease, unspecified; N73.6 Female pelvic peritoneal adhesions (postinfective); A59.01 Trichomonal vulvovaginitis; K21.9 Gastro-esophageal reflux disease without esophagitis; Z53.31 Laparoscopic surgical procedure converted to open procedure; Z79.899 Other long term (current) drug therapy; Z88.6 Allergy status to analgesic agent
CPT/HCPCS: 36415; 80053; 80307; 81005; 81025; 83735; 840; 84100; 85025; 85027; 86850; 86900; 86901; 88307; 94799; G0480; J0330; J0690; J1100; J1170; J1580; J1741; J2250; J2405; J2704; J3010; J3490; J7120; Q9968; S0028

== ENCOUNTER 2018-01-17 13:03 | Emergency (ER) | payer MEDICAID ==
--- NOTE | 2018-01-17 15:16 | ER Document Report ---
ED Medical Screen (RME) - General Chief Complaint: Back Pain Stated Complaint: BACK PAIN Time Seen by Provider: 01/17/18 14:38 Mode of Arrival: Wheelchair Information source: Patient Notes: Patient presents complaining of low back pain that radiates to the right posterior hip area and wraps around to right lower pelvic area. Patient denies any fever or urinary symptoms. Patient denies any vaginal bleeding or discharge. Patient states she has had pain for the past 10 days. Patient is concerned that her pain may be attributed to a complicated ovarian cyst that required a hysterectomy last year. Patient also complains of a change in the caliber of her stool. I have greeted and performed a rapid initial assessment of this patient. A comprehensive ED assessment and evaluation of the patient, analysis of test results and completion of the medical decision making process will be conducted by additional ED providers. TRAVEL OUTSIDE OF THE [place] IN LAST 30 DAYS: No - Related Data Allergies/Adverse Reactions: carbamazepine [From Tegretol] Allergy (Verified 07/06/16 10:44) Unknown reaction Past Medical History - Past Medical History Cardiac Medical History: Reports: Hx Coronary Artery Disease - high chol Denies: Hx Heart Attack, Hx Hypertension Pulmonary Medical History: Denies: Hx Asthma, Hx Bronchitis, Hx COPD, Hx Pneumonia Neurological Medical History: Denies: Hx Cerebrovascular Accident, Hx Seizures Renal/ Medical History: Denies: Hx Peritoneal Dialysis Musculoskeltal Medical History: Denies Hx Arthritis, Reports Hx Fibromyalgia Psychiatric Medical History: Reports: Hx Depression, Hx Post Traumatic Stress Disorder Past Surgical History: Reports: Hx Oral Surgery, Hx Thyroid Surgery - Immunizations Hx Diphtheria, Pertussis, Tetanus Vaccination: Yes - 2007 Physical Exam - Vital signs Vitals: Temp Pulse Resp BP Pulse Ox 97.8 F 86 18 121/66 98 01/17/18 13:11 01/17/18 13:11 01/17/18 13:11 01/17/18 13:11 01/17/18 13:11 - Abdominal Tenderness: Tender - Right lower pelvic - Back Back: Tender - Right SI tenderness Course - Vital Signs Vital signs: Temp Pulse Resp BP Pulse Ox 97.8 F 86 18 121/66 98 01/17/18 13:11 01/17/18 13:11 01/17/18 13:11 01/17/18 13:11 01/17/18 13:11 Doctor's Discharge - Discharge Referrals: NICHOLAS GONZALEZ MD [Primary Care Provider] - Follow up as needed
[2018-01-17 15:49] LABS: ABSOLUTE BASOPHILS # (AUTO) 0.1 10^3/uL (0.0-0.2); ABSOLUTE LYMPHOCYTES (AUTO) 2.8 10^3/uL (0.5-4.7); ABSOLUTE MONOCYTES (AUTO) 0.5 10^3/uL (0.1-1.4); ABSOLUTE NEUT (AUTO) 3.7 10^3/uL (1.7-8.2); BASOPHILS % (AUTO) 0.8 % (0-2); EOSINOPHILS % (AUTO) 0.6 % (0-6); HEMATOCRIT 42.4 % (36.0-47.0); HEMOGLOBIN 14.8 g/dL (12.0-15.5); MEAN CORPUSCULAR HEMOGLOBIN 31.5 pg (27.0-33.4); MEAN CORPUSCULAR HGB CONC 34.8 g/dL (32.0-36.0); MEAN CORPUSCULAR VOLUME 91 fl (80-97); MONOCYTES % (AUTO) 6.5 % (3-13); PLATELET COUNT 289 10^3/uL (150-450); RED BLOOD COUNT 4.68 10^6/uL (3.72-5.28); RED CELL DISTRIBUTION WIDTH 13.3 % (11.5-14.0); SEGMENTED NEUTROPHILS % (AUTO) 52.1 % (42-78); TOTAL CELLS COUNTED % (AUTO) 100 %; WHITE BLOOD COUNT 7.1 10^3/uL (4.0-10.5)
--- NOTE | 2018-01-17 16:00 | RADIOLOGY REPORT (SQ) ---
EXAM DESCRIPTION: L SPINE WHOLE COMPLETED DATE/TIME: 01/17/2018 3:49 pm REASON FOR STUDY: low back pain COMPARISON: None. NUMBER OF VIEWS: Five views including obliques. TECHNIQUE: AP, lateral, oblique, and sacral radiographic images acquired of the lumbar spine. LIMITATIONS: None. FINDINGS: MINERALIZATION: Normal. SEGMENTATION: Normal. No transitional anatomy. ALIGNMENT: Normal. VERTEBRAE: Maintained height. No fracture or worrisome bone lesion. DISCS: Preserved height. No significant osteophytes or end plate irregularity. POSTERIOR ELEMENTS: Pedicles and facets are intact. No pars defect or posterior arch defects. HARDWARE: None in the spine. PARASPINAL SOFT TISSUES: Normal. PELVIS: Intact as visualized. No fractures or worrisome bone lesions. SI joints intact. OTHER: No other significant finding. IMPRESSION: NORMAL 5 VIEW LUMBAR SPINE. TECHNICAL DOCUMENTATION: JOB ID: [id number] [employer]- All Rights Reserved Reading location - IP/workstation name: [email or web address]
[2018-01-17 16:08] LABS: ANION GAP 14 (5-19); BLOOD UREA NITROGEN 9 mg/dL (7-20); CALCIUM 10.5 mg/dL (8.4-10.2); CARBON DIOXIDE 27 mmol/L (22-30); CHLORIDE 101 mmol/L (98-107); GLUCOSE 94 mg/dL (75-110); POTASSIUM 4.2 mmol/L (3.6-5.0); SODIUM 141.8 mmol/L (137-145)
[2018-01-17 16:13] LABS: APPEARANCE,URINE SLIGHTLY-CLOUDY; BILIRUBIN,URINE NEGATIVE (NEGATIVE); COLOR,URINE YELLOW; GLUCOSE, URINE NEGATIVE (NEGATIVE); KETONES,URINE 20 mg/dL (NEGATIVE); LEUKOCYTE ESTERASE,URINE NEGATIVE (NEGATIVE); NITRITE,URINE NEGATIVE (NEGATIVE); PROTEIN,URINE NEGATIVE (NEGATIVE); URINE SPECIFIC GRAVITY 1.021
[2018-01-17] MEDS ORDERED: DEXAMETHASONE 4 MG TABLET PO ONE (16:49)
[2018-01-17] MEDS ORDERED: KETOROLAC TROMETHAMINE 60 MG/2 ML SDV IM ONE (16:49)
[2018-01-17] MEDS ORDERED: METHOCARBAMOL 500 MG TABLET PO ONE (16:49)
--- NOTE | 2018-01-17 16:53 | ER Document Report ---
ED General - General Chief Complaint: Back Pain Stated Complaint: BACK PAIN Time Seen by Provider: 01/17/18 14:38 Mode of Arrival: Wheelchair Information source: Patient Notes: 42-year-old female presents to ED for complaint of low back pain radiating to the pelvic area hip and down the leg. She states that she had a hysterectomy a year ago due to a complex ovarian cyst that involved the bladder the back and the intestines. She states she ended up having a complete hysterectomy with damage to the intestines and bladder and had a follow-up with a urologist. Patient is alert and oriented respirations regular and unlabored speaking in full sentences. She does have severe tenderness to the lumbar spine, hip, and pelvic. Patient is able to walk but with pain. TRAVEL OUTSIDE OF THE [place] IN LAST 30 DAYS: No - HPI Onset: Last week Onset/Duration: Gradual, Worse Severity: Moderate Pain Level: 4 Associated symptoms: Other - Lumbar pain radiating to the right around to the right buttock cheek right thigh and right pelvic area, vaginal discharge Exacerbated by: Sitting, Movement, Walking Relieved by: Denies Similar symptoms previously: Yes Recently seen / treated by doctor: No - Related Data Allergies/Adverse Reactions: carbamazepine [From Tegretol] Allergy (Verified 01/17/18 15:27) Unknown reaction Past Medical History - General Information source: Patient - Social History Smoking Status: Smoker,Current Status Unk Frequency of alcohol use: None Drug Abuse: None Lives with: Family Family History: Other - noncontributory Patient has suicidal ideation: No Patient has homicidal ideation: No - Past Medical History Cardiac Medical History: Reports: Hx Coronary Artery Disease - high chol, Hx Hypercholesterolemia Pulmonary Medical History: Reports: None EENT Medical History: Reports: None Endocrine Medical History: Reports: None Renal/ Medical History: Reports: None Musculoskeletal Medical History: Denies Hx Arthritis, Reports Hx Fibromyalgia Psychiatric Medical History: Reports: Hx Depression, Hx Post Traumatic Stress Disorder Past Surgical History: Reports: Hx Oral Surgery, Hx Thyroid Surgery - Immunizations Hx Diphtheria, Pertussis, Tetanus Vaccination: Yes - 2007 Hx Pneumococcal Vaccination: 02/21/09 Review of Systems - Review of Systems Notes: REVIEW OF SYSTEMS: CONSTITUTIONAL : Denies fever, chills, or sweats. Denies recent illness. EENT: Denies eye, ear, throat, or mouth pain or symptoms. Denies nasal or sinus congestion or discharge. Denies throat, tongue, or mouth swelling or difficulty swallowing. CARDIOVASCULAR: Denies chest pain. Denies palpitations or racing or irregular heart beat. Denies ankle edema. RESPIRATORY: Denies cough, cold, or chest congestion. Denies shortness of breath, difficulty breathing, or wheezing. GASTROINTESTINAL: Patient complains of back pain that comes around to the middle of the abdomen. Patient complained of right abdominal and pelvic tenderness. She refused a pelvic exam but stated she would do swabs to check for trichomonas and GC and chlamydia as she was concerned that she may have trichomonas. Denies nausea, vomiting, or diarrhea. Denies blood in vomitus, stools, or per rectum. Denies black, tarry stools. Denies constipation. GENITOURINARY: Denies difficulty urinating, painful urination, burning, frequency, blood in urine, or discharge. FEMALE GENITOURINARY: Denies vaginal bleeding, heavy or abnormal periods, irregular periods. Denies vaginal discharge or odor. MUSCULOSKELETAL: Complains of low back pain that radiates around the right hip to the right pelvis area. She states she has had vaginal discharge and is concerned that she may have the trichomonas that she had when she had to get her hysterectomy. She states she had a hysterectomy a year ago and had lesions on her intestines and bladder and she is very concerned that she might have this again. Denies joint pain or swelling. SKIN: Denies rash, lesions or sores. HEMATOLOGIC : Denies easy bruising or bleeding. LYMPHATIC: Denies swollen, enlarged glands. NEUROLOGICAL: Denies confusion or altered mental status. Denies passing out or loss of consciousness. Denies dizziness or lightheadedness. Denies headache. Denies weakness or paralysis or loss of use of either side. Denies problems with gait or speech. Denies sensory loss, numbness, or tingling. Denies seizures. PHYSICAL EXAMINATION: GENERAL: Well-appearing, well-nourished and in no acute distress. HEAD: Atraumatic, normocephalic. EYES: Pupils equal round and reactive to light, extraocular movements intact, conjunctiva are normal. ENT: Nares patent, oropharynx clear without exudates. Moist mucous membranes. NECK: Normal range of motion, supple without lymphadenopathy LUNGS: Breath sounds clear to auscultation bilaterally and equal. No wheezes rales or rhonchi. HEART: Regular rate and rhythm without murmurs ABDOMEN: Abdominal tenderness to the right abdomen soft, nondistended abdomen. No guarding, no rebound. No masses appreciated. Female : deferred patient refused a pelvic but did swabs for GC and chlamydia and wet mount. Patient did have a whitish discharge Musculoskeletal: Normal range of motion, no pitting or edema. No cyanosis. Tenderness but bilateral back worse on the right side NEUROLOGICAL: Cranial nerves grossly intact. Normal speech, normal gait. Normal sensory, motor exams PSYCH: Very anxious angry tearful during initial exam but after she was reassured that her tests were negative she was much less angry and anxious. SKIN: Warm, Dry, normal turgor, no rashes or lesions noted. PSYCHIATRIC: Denies anxiety or stress. Denies depression, suicidal ideation, or homicidal ideation. ALL OTHER SYSTEMS REVIEWED AND NEGATIVE. Dictation was performed using [employer] voice recognition software Physical Exam - Vital signs Vitals: Temp Pulse Resp BP Pulse Ox 97.8 F 86 18 121/66 98 01/17/18 13:11 01/17/18 13:11 01/17/18 13:11 01/17/18 13:11 01/17/18 13:11 Course - Re-evaluation Re-evalutation: 01/18/18 02:35 Chest x-ray and lab results with patient before she was discharged with reports of labs and x-rays given to patient to follow-up with primary doctor. All discharge instructions were discussed with patient and daughter and explained in detail. Patient and daughter both are able to verbalize understanding and agreement with treatment plan. - Vital Signs Vital signs: Temp Pulse Resp BP Pulse Ox 97.8 F 63 16 94/54 L 97 01/17/18 13:11 01/17/18 18:12 01/17/18 18:12 01/17/18 18:12 01/17/18 18:12 - Laboratory Result Diagrams: 01/17/18 15:24 01/17/18 15:24 Laboratory results interpreted by me: 01/17/18 01/17/18 15:24 15:57 Calcium 10.5 H Urine Ketones 20 H Urine Urobilinogen 4.0 H - Diagnostic Test Radiology reviewed: Image reviewed, Reports reviewed Discharge - Discharge Clinical Impression: Pelvic pain Low back pain with right-sided sciatica Qualifiers: Chronicity: chronic Back pain laterality: right Qualified Code(s): M54.41 - Lumbago with sciatica, right side Condition: Stable Disposition: HOME, SELF-CARE Additional Instructions: LOW BACK PAIN: Three out of every four people will have an episode of disabling back pain during their lifetime. Most commonly the pain is due to straining of the muscles and ligaments in the low back. Usual treatment includes: (1) Rest on a firm surface. Avoid lying on your stomach. (2) Ice pack the painful area. After a few days, gentle heat may be used intermittently to relax the area, or ice packs can be continued. (3) Medication may be needed -- muscle relaxers and antiinflammatory medicines are commonly used. (4) As the back improves, exercises are prescribed to strengthen the back and abdominal muscles. Your doctor will advise you on the proper care for your back at each stage in your recovery. You may be better in a few days -- or healing may take several weeks. If new symptoms of a "herniated disc" (radiation of pain, numbness, or tingling down the back of the leg or weakness in the leg) occur, you should be re-examined. Further testing may be necessary. You were tested for Trichomonas which is the STD you had last year when you had your hysterectomy. The test came back negative that you do not have trichomonas. You were also tested for gonorrhea and chlamydia of these tests will not come back for about an hour and a half. Please call [phone] in about 2 hours and I will give you the results of that test. You have already been treated with the appropriate antibiotics if it does come back positive you will not be needing any new treatment. If it does come back positive you need to let your partner know that it was positive so they can be tested and treated. Do not have any sexual intercourse until you are told if you are positive or negative if you are negative it is okay to carry on his usual if you are positive then will be no sexual intercourse for 2 weeks. MUSCLE RELAXERS: Muscle relaxing medications are usually prescribed for acute muscle spasm or injury to the neck and back. They are often combined with antiinflammatory pain medication for increased relief. You may stop the muscle relaxer when the pain and stiffness have improved. Start the medication again if spasms recur. Muscle relaxers may cause drowsiness, especially with the first dose. Do not operate machinery or drive while under the effects of the medication. Most muscle relaxers last up to 24 hours. Do not combine the medication with alcohol. ICE PACKS: Apply ice packs frequently against the painful area. Many different schedules are recommended, such as "20 minutes on, 20 minutes off" or "one hour ice, two hours rest." If you need to work, you may need to go longer between ice treatments. You should plan to have the area ice packed AT LEAST one fourth of the time. The ice should be applied over the wrap, tape, or splint, or over a layer of cloth -- not directly against the skin. Some ice bags have a built-in cloth and can be put directly on the skin. WARM PACKS: After approximately two days, apply gentle heat (such as a heating pad or hot water bottle) for about 20 to 30 minutes about every two hours -- at least four times daily. Warmth and elevation will help you make a more rapid recovery , and will ease the pain considerably. Do not use HOT heat, and never apply heat for longer than 30 minutes. The continuous heat can invisibly damage skin and muscles -- even when no burn is seen on the surface. Damaged muscles can make you MORE sore. Toradol Injection You have been given an injection of ketorolac tromethamine (Toradol). This is an excellent, safe drug for pain control. It also has potent antiinflammatory action. You should have significant pain relief within about one hour. Toradol is not addicting and is non-sedating. It does not interfere with driving or work. Call or return if you develop itching, hives, shortness of breath, or rash. STEROID MEDICATION: You have been given a medicine of the cortisone/steroid class. This medication is used to control inflammation or allergy. It is usually only given for a short period of time, until the acute process subsides. There are usually no side effects from short-term use of cortisone-like medications. Some persons feel an increased sense of well-being and are not sleepy at bedtime. Long-term use of cortisone medications is best avoided, unless required for a severe condition. If your condition does not remit, or relapses after the course of corticosteroid medication, you should consult your physician. Stretching Exercises for the Back The physician has recommended that you begin stretching exercises for your back. These are often used even while the back is painful. However, you should notify the physician if the activities seem to increase your pain. PELVIC TILT: Lie flat on your back with knees bent. Tighten your stomach and buttock muscles so it flattens your lower back against the floor. Hold 10 seconds. Repeat 10 times, twice daily. KNEE RAISE: Lying on the back with knees bent, raise one knee to your chest, then the other. Hold both knees against the chest 10 seconds, then lower one knee at a time. Repeat 10 times, twice daily. PARTIAL TRUNK RAISE: Lie face down, arms at your sides. Keeping your waist on the floor, use your arms raise your chest up. Support yourself on your elbows for 30 seconds. Repeat twice daily, increasing the time to two minutes as you recover. I have placed a lidocaine patch on your back. This needs to stay on for 12 hours and then you need to remove it. If this helps your pain you can buy similar patches [id number] without a prescription. Do not put hot packs or cold packs over top of your lidocaine patch. These follow-up with your primary doctor within the next several days concerning your chronic back pain. I know this pain is worse than normal but it is called sciatica Sciatica Your symptoms suggest "sciatica." The pain of sciatica typically radiates down the leg. Numbness in the foot or calf may also occur. Sciatica is caused by irritation of the sciatic nerve or its branches. The irritation can be due to a herniated disk in the spine, swelling and inflammation in the muscles surrounding the sciatic nerve, or direct injury of the nerve itself. Most cases of sciatica will resolve with medical treatment. Bed rest is usually recommended initially. Surgery is only necessary when the condition will not improve with rest and antiinflammatory medication. Muscle relaxers are often given if muscle soreness is present. A CAT scan of the back may be performed if a herniated disk is suspected. Re-examination is necessary if you develop increasing numbness, localized weakness in the foot or ankle, or if the pain does not respond to rest. FOLLOW-UP CARE: If you have been referred to a physician for follow-up care, call the physician s office for an appointment as you were instructed or within the next two days. If you experience worsening or a significant change in your symptoms, notify the physician immediately or return to the Emergency Department at any time for re-evaluation. Prescriptions: Methocarbamol [Robaxin 500 mg Tablet] 500 mg PO BIDP PRN #14 tablet PRN Reason: Forms: Return to School Referrals: NICHOLAS GONZALEZ MD [Primary Care Provider] - Follow up in 3-5 days
[2018-01-17 17:00] LABS: EPITHELIALS (WET MOUNT) 3+ EPITHELIALS SEEN; T.VAGINALIS (WET MOUNT) NO TRICHOMONAS SEEN; WBCS (WET MOUNT) RARE WBCS SEEN; YEAST (WET MOUNT) NO YEAST SEEN
[2018-01-17] MEDS ORDERED: LIDOCAINE 5% (700 MG) TRANSDERMAL ADH..PATCH TP ONE (18:10)
[2018-01-17 18:13] VITALS: BP 94/54
[2018-01-17 18:25] LABS: CHLAM PCR NOT DETECTED (NOT DETECT); GON PCR NOT DETECTED (NOT DETECT)
== END 2018-01-17 18:21 | disposition home or self-care (01) ==
LOC: ER 13:03
DX: R10.2 Pelvic and perineal pain (principal); M54.41 Lumbago with sciatica, right side; I25.10 Atherosclerotic heart disease of native coronary artery without angina pectoris; E78.00 Pure hypercholesterolemia, unspecified; Z90.710 Acquired absence of both cervix and uterus
CPT/HCPCS: 99284; 96372; 36415; 87210; 85025; 80048; 81001; 87491; 87591; 72110; J3490 ×3; J1885